=== PATIENT | male | born 1980 | race Caucasian/White ===

== ENCOUNTER 2017-12-20 11:55 | Emergency (ER) | payer BC ==
[2017-12-20 12:05] VITALS: BMI 32.5
--- NOTE | 2017-12-20 12:42 | PDOC ---
History of Present Illness - General Chief Complaint: Respiratory Stated Complaint: COUGH, "I THINK I HAVE WALKING PNEUMONIA" Time Seen by Provider: 12/20/17 12:33 - History of Present Illness Initial Comments: 12/20/17 12:54 Chief complaint: Cough History of present illness: Patient had URI symptoms suggestive of sinusitis and was prescribed Ceftin by his primary physician. He has been taking this for about a week. However, he developed a cough 3 days ago which seems to be worsening. This is accompanied by low-grade fever up to 100.8. Review of systems: Denies chest pain, shortness of breath, abdominal pain, nausea, vomiting, diarrhea, visual or focal neurologic symptoms, unsteadiness of gait. He has been eating and drinking adequately. He is producing small amounts of clear phlegm with coughing remainder systems reviewed and noncontributory. Past medical history: Frequent recurrent bronchitis. Otherwise healthy. No cardiac disease, chronic lung disease, or diabetes. Social history: Long-time cigarette smoker, quit 2 years ago, but now smokes cigarettes. Occasional social alcohol, none recently. No street drugs. Active and without disability Family history: Reviewed and noncontributory including early coronary artery disease, pulmonary disease including emphysema, metabolic disease including diabetes Physical exam: Alert and oriented well-developed well-nourished no acute distress cheerful and cooperative Afebrile, vital signs normal except for mild tachycardia and mildly elevated blood pressure. No pallor or icterus. PERRLA, fundi benign, ENT clear. Neck supple without bruit mass or nodes Bilateral breath sounds are present but are diminished at the left base. There is no dullness to percussion. No wheezes rales or rhonchi CV S1 to distant without murmur rub or gallop pulses full and symmetric no JVD or edema no bruits Abdomen nondistended. Normal bowel sounds. Soft without mass tenderness organomegaly. No CVAT Extremities no CCE Neurological intact Skin clear, no rash, adequate turgor and wet mucous membranes Impression: Possible pneumonia or persistent bronchitis Plan: Chest x-ray, labs and urinalysis, IV fluids, further medical treatment depending on results. Past History - Past Medical History Allergies/Adverse Reactions: Allergies Allergy/AdvReac Type Severity Reaction Status Date / Time erythromycin base Allergy Severe Hives Verified 12/20/17 11:57 [Erythromycin Base] Home Medications: Ambulatory Orders Azithromycin [Zithromax -] 250 mg PO UTDICT #6 tab 12/20/17 Promethazine Dm 5 ml PO TID 12/20/17 COPD: No - Immunization History Td Vaccination: Yes TDAP Vaccination: Yes Immunization Up to Date: Yes - Suicide/Smoking/Psychosocial Hx Smoking Status: Yes Smoking History: Current some day smoker Have you smoked in the past 12 months: Yes Number of Cigarettes Smoked Daily: 20 Information on smoking cessation initiated: Yes 'Breaking Loose' booklet given: 12/20/17 Hx Alcohol Use: (social) Drug/Substance Use Hx: No Substance Use Type: None Hx Substance Use Treatment: No *Physical Exam - Vital Signs Last Vital Signs Temp Pulse Resp BP Pulse Ox 98.5 F 131 H 20 145/93 97 12/20/17 11:55 12/20/17 11:55 12/20/17 11:55 12/20/17 11:55 12/20/17 11:55 ED Treatment Course - LABORATORY CBC & Chemistry Diagram: 12/20/17 13:00 12/20/17 13:00 Medical Decision Making - Medical Decision Making 12/20/17 13:41 White blood count normal. Remainder of labs without significant abnormalities. Chest x-ray clear. No sign of pneumonia. Tachycardia has resolved with IV fluids and control of fever. Blood pressure has also improved. Most likely this is acute/chronic bronchitis. Ceftin may not cover atypicals. Plan to switch antibiotic to azithromycin and continue cough suppressant. Advised to return to ER if fever above 100.8 and or shortness of breath, chest pain, or wheezing. Patient in no distress, respiratory or otherwise, fully ambulatory upon discharge to follow-up as recommended 12/20/17 13:43 *DC/Admit/Observation/Transfer Diagnosis at time of Disposition: Bronchitis - Discharge Dispostion Disposition: HOME Condition at time of disposition: Improved Admit: No - Prescriptions Prescriptions: Azithromycin [Zithromax -] 250 mg PO UTDICT #6 tab - Referrals Referrals: Jaime Owens MD [Primary Care Provider] - 3 days - Patient Instructions Printed Discharge Instructions: DI for Acute Bronchitis Additional Instructions: Rest, fluids, Tylenol. Stop present antibiotic Ceftin Begin new antibiotic azithromycin as prescribed today. Continue cough preparation Stay inside out of the cold, return to ER if there is high fever, chest pain, or shortness of breath. Otherwise follow-up with Dr. Owens in 2-3 days. - Post Discharge Activity
[2017-12-20] MEDS ORDERED: ACETAMINOPHEN 1000 MG/100 ML VIAL (NON FORMULARY) IVPB ONE (12:43)
[2017-12-20] MEDS ORDERED: SODIUM CHLORIDE 1,000 ML IV STA (12:43)
[2017-12-20] MEDS ORDERED: ACETAMINOPHEN INJECTION 100 ML IVPB ONE (12:56)
[2017-12-20 13:29] LABS: BASO % 0.3 % (0-2.0); EOS % 2.4 % (0-4.5); HEMATOCRIT 48.3 % (35.4-49); HEMOGLOBIN 16.5 GM/dl (11.7-16.9); LYMPH % 19.3 % (8-40); MCH 29.9 pg (25.7-33.7); MCHC 34.1 g/dl (32.0-35.9); MEAN CELL VOLUME 87.8 fl (80-96); MEAN PLT VOLUME 7.9 fl (7.5-11.1); MONO % 12.7 % (3.8-10.2); NEUT % 65.3 % (42.8-82.8); PLATELET COUNT 221 K/MM3 (134-434); RDW 12.4 % (11.9-15.9); WHITE BLOOD COUNT 5.3 K/mm3 (4.0-10.8)
[2017-12-20 13:48] LABS: ALBUMIN 4.2 g/dl (3.5-5.0); ALK PHOS 87 U/L (32-92); ANION GAP 5 (8-16); BILIRUBIN,TOTAL 0.3 mg/dl (0.2-1.0); BLOOD UREA NITROGEN 13 mg/dl (7-18); CALCIUM 9.3 mg/dl (8.4-10.2); CHLORIDE 104 mmol/L (98-107); CO2 25 mmol/L (22-28); CREATININE 0.9 mg/dl (0.6-1.3); GLUCOSE,RANDOM 112 mg/dl (74-106); SGOT/AST 34 U/L (10-42); SGPT/ALT 50 U/L (10-40); SODIUM 134 mmol/L (136-145); TOT PROT 7.4 g/dl (6.4-8.3)
[2017-12-20 13:59] VITALS: BP 129/72; PULSE 98; TEMP 98.2
== END 2017-12-20 14:20 | disposition home or self-care (01) ==
LOC: FER 11:55
PROC: 3E033NZ Introduction of Analgesics, Hypnotics, Sedatives into Peripheral Vein, Percutaneous Approach (ICD-10-PCS; principal; 2017-12-20)
PROC: 3E0337Z Introduction of Electrolytic and Water Balance Substance into Peripheral Vein, Percutaneous Approach (ICD-10-PCS; 2017-12-20)
DX: J40 Bronchitis, not specified as acute or chronic (principal)
CPT/HCPCS: 36415; 71046-TC-FY; 80053; 85025; 99285-25

== ENCOUNTER 2018-12-01 19:09 | Emergency (ER) | payer BC ==
--- NOTE | 2018-12-01 19:28 | PDOC ---
History of Present Illness - General Chief Complaint: Injury Stated Complaint: LEFT SHOULDER PAIN Time Seen by Provider: 12/01/18 19:12 History Source: Patient Exam Limitations: No Limitations - History of Present Illness Initial Comments: 12/01/18 19:24 This is a 38-year-old male who comes in complaining of left shoulder pain. Patient said he fell off a ladder approximately was 4 steps and landed on his left shoulder a week and a half ago. Since falling patient says he has had difficulty fully extending his arm and sometimes at night it is painful. Patient otherwise denied any other injuries. Allergies: None Past Medical History: none Social history: Lives with family. No smoking. No alcohol. No illicit drugs. Surgical history: None General: No fevers or chills, no weakness, no weight loss HEENT: No change in vision. No sore throat,. No ear pain CardioVascular: no chest discomfort. No shortness of breath Respiratory:No cough, or wheezing. Gastrointestinal: no nausea, vomiting, diarrhea or constipation, No rectal bleeding Genitourinary: No dysuria, hematuria, or frequency Musculoskeletal: Left shoulder pain Neurologic: No headache, vertigo, dizziness or loss of consciousness Psychiatric: nor depression Skin: No rashes or easy bruising Endocrine: no increased thirst or abnormal weight change Allergic: no skin or latex allergy All other systems reviewed and normal GENERAL: The patient is awake, alert, and fully oriented, in no acute distress. HEAD: Normal with no signs of trauma. EYES: Pupils equal, round and reactive to light, extraocular movements intact, sclera anicteric, conjunctiva clear. EXTREMITIES: Left shoulder: There is some tenderness on palpation of the anterior rotator cuff. Patient has full range of motion but expresses discomfort /pain when he fully extends his left arm at the shoulder. Neurovascular is intact. NEUROLOGICAL: Normal speech, normal gait. PSYCH: Normal mood, normal affect. SKIN: Warm, Dry, normal turgor, no rashes or lesions noted. Assessment and plan: This is a 38-year-old male with a left shoulder injury that is approximately week and a half old. Patient most likely injured his rotator cuff however will obtain a x-ray to rule out any bony pathology and then refer patient to a orthopedist 12/01/18 19:48 X-ray no acute pathology, fracture or dislocation Past History - Past Medical History Allergies/Adverse Reactions: Allergies Allergy/AdvReac Type Severity Reaction Status Date / Time erythromycin base Allergy Severe Hives Verified 12/20/17 11:57 [Erythromycin Base] Home Medications: Ambulatory Orders NK [No Known Home Medication] 12/01/18 COPD: No - Immunization History Td Vaccination: Yes TDAP Vaccination: Yes Immunization Up to Date: Yes - Suicide/Smoking/Psychosocial Hx Smoking Status: Yes Smoking History: Current some day smoker Have you smoked in the past 12 months: Yes Number of Cigarettes Smoked Daily: 20 Information on smoking cessation initiated: Yes 'Breaking Loose' booklet given: 11/01/14 Hx Alcohol Use: Yes (SOCIAL) Drug/Substance Use Hx: No Substance Use Type: None Hx Substance Use Treatment: No *Physical Exam - Vital Signs Last Vital Signs Temp Pulse Resp BP Pulse Ox 98.0 F 90 16 139/89 100 12/01/18 19:12 12/01/18 19:12 12/01/18 19:12 12/01/18 19:12 12/01/18 19:12 Moderate Sedation - Procedure Monitoring Vital Signs: Procedure Monitoring Vital Signs Temperature 98.0 F 12/01/18 19:12 Pulse Rate 90 12/01/18 19:12 Respiratory Rate 16 12/01/18 19:12 Blood Pressure 139/89 12/01/18 19:12 O2 Sat by Pulse Oximetry (%) 100 12/01/18 19:12 *DC/Admit/Observation/Transfer Diagnosis at time of Disposition: Left anterior shoulder pain - Discharge Dispostion Disposition: HOME Condition at time of disposition: Good Decision to Admit order: No - Referrals Referrals: Jaime Owens MD [Primary Care Provider] - Jaime Boogie MD [Staff Physician] - - Patient Instructions Additional Instructions: Follow-up with an orthopedist if he needed an orthopedist call Dr. perez or Dr. Mercer Tylenol or Motrin as needed for the pain. Return to the emergency department immediately with ANY new, persistent or worsening symptoms. Continue any medications as previously prescribed by your physician. You should follow up with your primary doctor as soon as possible regarding today's emergency department visit. . Please make sure your doctor reviews the results of your emergency evaluation. Thank you for coming to the Emergency Department today for your care. It was a pleasure to see you today. Please note that your evaluation is INCOMPLETE until you follow-up with your doctor. - Post Discharge Activity
[2018-12-01 19:32] VITALS: BP 139/89; PULSE 90; TEMP 98; BMI 32.3
== END 2018-12-01 19:57 | disposition home or self-care (01) ==
LOC: FER 19:09
DX: M25.512 Pain in left shoulder (principal); W18.39XA Other fall on same level, initial encounter; Y93.89 Activity, other specified; Y92.89 Other specified places as the place of occurrence of the external cause; F17.210 Nicotine dependence, cigarettes, uncomplicated
CPT/HCPCS: 73030-TC-LT-FY; 99281-25

== ENCOUNTER 2019-10-30 15:23 | Emergency (ER) | payer BC ==
[2019-10-30 15:40] VITALS: BP 123/78; PULSE 100; TEMP 98.5; BMI 27.8
--- NOTE | 2019-10-30 18:21 | PDOC ---
Documentation entered by Josesito Rodriguez SCRIBE, acting as scribe for Rick Fatima MD. Rick Fatima MD: This documentation has been prepared by the Michael baez Aiswarya, SCRIBE, under my direction and personally reviewed by me in its entirety. I confirm that the documentation accurately reflects all work, treatment, procedures, and medical decision making performed by me. History of Present Illness - General Chief Complaint: Injury Stated Complaint: RIGTH HEEL PAIN S/P FALL Time Seen by Provider: 10/30/19 15:35 History Source: Patient Exam Limitations: No Limitations - History of Present Illness Initial Comments: 10/30/19 15:50 The patient is a 38 year old male, with no significant PMH, who presents to the emergency department for evaluation of a fall that occurred 1 week ago. Patient states he was walking downstairs when he slipped and injured his right heel. He currently endorses mild pain on ambulation. The patient denies numbness or tingling. Denies any head trauma or other injury. Denies any bleeding or contusion. Denies chest pain, shortness of breath, headache and dizziness. Denies fever, chills, nausea, vomiting, diarrhea and constipation. Allergies: erythromycin base Past surgical history: None reported Social history: None reported PCP: None reported Past History - Past Medical History Allergies/Adverse Reactions: Allergies Allergy/AdvReac Type Severity Reaction Status Date / Time erythromycin base Allergy Severe Hives Verified 10/30/19 15:36 [Erythromycin Base] Home Medications: Ambulatory Orders NK [No Known Home Medication] 12/01/18 COPD: No - Immunization History Td Vaccination: Yes TDAP Vaccination: Yes Immunization Up to Date: Yes - Psycho Social/Smoking Cessation Hx Smoking Status: Yes Smoking History: Current some day smoker Have you smoked in the past 12 months: Yes Number of Cigarettes Smoked Daily: 20 'Breaking Loose' booklet given: 12/01/18 Hx Alcohol Use: (social) Drug/Substance Use Hx: No Substance Use Type: None Hx Substance Use Treatment: No Review of Systems - Review of Systems Able to Perform ROS?: Yes Comments:: 10/30/19 15:50 GENERAL/CONSTITUTIONAL: No fever or chills. No weakness. HEAD, EYES, EARS, NOSE AND THROAT: No change in vision. No ear pain or discharge. No sore throat. CARDIOVASCULAR: No chest pain or shortness of breath. RESPIRATORY: No cough, wheezing, or hemoptysis. GASTROINTESTINAL: No nausea, vomiting, diarrhea or constipation. GENITOURINARY: No dysuria, frequency, or change in urination. MUSCULOSKELETAL:+right heel tenderness. No neck or back pain. SKIN: No rash NEUROLOGIC: No headache, vertigo, loss of consciousness, or change in strength/ sensation. ENDOCRINE: No increased thirst. No abnormal weight change. HEMATOLOGIC/LYMPHATIC: No anemia, easy bleeding, or history of blood clots. ALLERGIC/IMMUNOLOGIC: No hives or skin allergy. *Physical Exam - Vital Signs Last Vital Signs Temp Pulse Resp BP Pulse Ox 98.5 F 100 H 18 123/78 99 10/30/19 15:24 10/30/19 15:24 10/30/19 15:24 10/30/19 15:24 10/30/19 15:24 - Physical Exam 10/30/19 15:53 GENERAL: Awake, alert, and fully oriented, in no acute distress EXTREMITIES: +right calcaneus tenderness. Normal range of motion, no edema. No clubbing or cyanosis. No cords or erythema. NEUROLOGICAL: Cranial nerves II through XII grossly intact. Normal speech. SKIN: Warm, Dry, normal turgor, no rashes or lesions noted. ED Treatment Course - RADIOLOGY Radiology Studies Ordered: Category Date Time Status OSCALCIS/HEEL-RIGHT [RAD] Stat Radiology 10/30/19 15:42 Completed Medical Decision Making - Medical Decision Making 10/30/19 18:21 heel bruise without radiographic evidence of fracture analgesia Discharge - Discharge Information Problems reviewed: Yes Clinical Impression/Diagnosis: Heel pain Qualifiers: Laterality: right Qualified Code(s): M79.671 - Pain in right foot Condition: Poor Disposition: HOME - Follow up/Referral - Patient Discharge Instructions Patient Printed Discharge Instructions: Contusion - Post Discharge Activity
== END 2019-10-30 16:52 | disposition home or self-care (01) ==
LOC: FER 15:23
DX: M79.671 Pain in right foot (principal); W18.39XA Other fall on same level, initial encounter; Y93.89 Activity, other specified; Y92.89 Other specified places as the place of occurrence of the external cause; Z88.8 Allergy status to other drugs, medicaments and biological substances; F17.210 Nicotine dependence, cigarettes, uncomplicated
CPT/HCPCS: 73650-TC-RT-FY; 99282-25

== ENCOUNTER 2021-04-11 18:05 | Emergency (ER) | payer BC ==
[2021-04-11 18:21] VITALS: BP 123/81; PULSE 86; TEMP 97.8; BMI 27.8
== END 2021-04-11 18:30 | disposition home or self-care (01) ==
LOC: FER 18:05
DX: S06.0X0A Concussion without loss of consciousness, initial encounter (principal)
CPT/HCPCS: 99281-25

== ENCOUNTER 2024-06-05 04:38 | Day surgery (SDC) | payer BC ==
[2024-06-02 13:36] VITALS: BMI 30.7
[2024-06-05 08:28] VITALS: RESP 18
[2024-06-05 10:11] VITALS: BP 109/65; PULSE 70; TEMP 97.8
== END 2024-06-05 10:14 | disposition home or self-care (01) ==
LOC: JASU-ENDO 04:38
PROVIDERS: ATTEND Internal Medicine Gastroenterology
PROC: 0DBN8ZX Excision of Sigmoid Colon, Via Natural or Artificial Opening Endoscopic, Diagnostic (ICD-10-PCS; principal; 2024-06-05 09:00)
DX: Z12.11 Encounter for screening for malignant neoplasm of colon (principal); K63.5 Polyp of colon; K64.8 Other hemorrhoids; Z83.719 Family history of colon polyps, unspecified; I10 Essential (primary) hypertension
CPT/HCPCS: 88305-TC